=== PATIENT | male | born 1990 | race Two or more races ===

== ENCOUNTER 2016-05-26 14:57 | Emergency (ER) | payer OTHER ==
[~2016-05-26] VITALS: Ht 175.3 cm; Wt 81.6 kg
[2016-05-26 15:03] VITALS: BP 115/81
[2016-05-26] MEDS ORDERED: TDAP [DIPH/PERTUSSIS/TET] 0.5 ML VIAL IM STA (15:06)
[2016-05-26] MEDS ORDERED: TDAP [DIPH/PERTUSSIS/TET] 0.5 ML VIAL IM ONE (15:22)
--- NOTE | 2016-05-26 15:43 | NUR ---
wound care provided.
== END 2016-05-26 15:46 | disposition home or self-care (01) ==
LOC: ER 14:59
DX: S61.216A Laceration without foreign body of right little finger without damage to nail, initial encounter (principal); W45.8XXA Other foreign body or object entering through skin, initial encounter; Y93.89 Activity, other specified; Y92.89 Other specified places as the place of occurrence of the external cause; Y99.8 Other external cause status
CPT/HCPCS: 12001; 90471; 90715; 99283; A4606; A6402; Z7610

== ENCOUNTER 2017-01-29 01:35 | Emergency (ER) | payer SELFPAY ==
[~2017-01-29] VITALS: Ht 177.8 cm; Wt 95.3 kg
[2017-01-29 01:44] VITALS: BP 132/78
--- NOTE | 2017-01-29 01:50 | NUR ---
TO BED 8 A 26 YO MALE PATIENT BIBSELF C/O "SUDDEN NECK PAIN" SINCE YESTERDAY. DENIES TRAUMA. VSS. NAD NOTED. AMBULATORY. COMFORT MEASURES RENDERED. AWAITING FOR ER MD GARDNER.
== END 2017-01-29 02:23 | disposition home or self-care (01) ==
LOC: ER 01:39
DX: M62.830 Muscle spasm of back (principal); F41.9 Anxiety disorder, unspecified
CPT/HCPCS: 99282; A4606; Z7610

== ENCOUNTER 2017-03-06 11:24 | Emergency (ER) | payer SELFPAY ==
[~2017-03-06] VITALS: Ht 175.3 cm; Wt 104.3 kg
[2017-03-06 11:32] VITALS: BP 137/88
--- NOTE | 2017-03-06 11:41 | NUR ---
Pt c/o dizziness since waking up this AM, slight nausea. Had bad STAFFORD last 2-3 days. Strong and equal spinneret cleaner, dorsi & pedi flexion, symetrical face and smile, tongue midline, PERRLA. Pt denies CP, no other complaints, no distress noted.
[2017-03-06] MEDS ORDERED: MECLIZINE HCL 12.5 MG TABLET PO ONE (12:00)
[2017-03-06] MEDS ORDERED: MECLIZINE HCL 25 MG TABLET ONE ×2 (12:07→13:08)
[2017-03-06] MEDS ORDERED: ONDANSETRON 4 MG TAB.RAPDIS ONE ×2 (12:08→13:09)
[2017-03-06] MEDS: ONDANSETRON 4 MG TAB.RAPDIS SL ONE (12:10)
--- NOTE | 2017-03-06 13:43 | NUR ---
Gave pt RX and d/c instructions, verbalized understanding.
== END 2017-03-06 13:47 | disposition home or self-care (01) ==
LOC: ER 11:25
DX: R42 Dizziness and giddiness (principal); F41.9 Anxiety disorder, unspecified; F17.200 Nicotine dependence, unspecified, uncomplicated
CPT/HCPCS: 70450-TC; A4606; J8597; Q0162; Z7610

== ENCOUNTER 2018-04-06 02:37 | Emergency (ER) | payer SELFPAY ==
[~2018-04-06] VITALS: Ht 175.3 cm; Wt 104.3 kg
--- NOTE | 2018-04-06 02:50 | NUR ---
PT BIB SELF. COMP OF HAVING L L Q ABD PAIN. STARTED YESTERDAY. NO ISSUES WITH GI/ AT THIS MOMENT. AOX4. AMBULATORY W,STEADY GAIT. LABS COLLECTED AND SENT FOR ANALYSIS.
[2018-04-06] MEDS ORDERED: HYDROMORPHONE INJ 0.5 MG/0.5 ML SYRINGE ONE (02:57)
[2018-04-06] MEDS ORDERED: ONDANSETRON HCL/PF 4 MG/2 ML VIAL ONE (02:57)
[2018-04-06] MEDS ORDERED: ONDANSETRON HCL/PF 4 MG/2 ML VIAL IVP ONE (03:00)
[2018-04-06] MEDS ORDERED: HYDROMORPHONE INJ 2 MG/ML DISP.SYRIN IV ONE (03:00)
[2018-04-06 03:04] LABS: BASOPHILS # (AUTO) 0.1 /CMM (0.0-0.2); BASOPHILS % (AUTO) 0.8 % (0.0-2.0); EOSINOPHILS % (AUTO) 3.6 % (0.0-6.0); HEMATOCRIT 44 % (39-51); HEMOGLOBIN 14.9 g/dL (13.5-17.5); LYMPHOCYTES # (AUTO) 2.4 /CMM (0.8-4.8); LYMPHOCYTES % (AUTO) 25.4 % (20.0-44.0); MEAN CORPUSCULAR HGB CONC 34 g/dl (31.0-36.0); MEAN CORPUSCULAR VOLUME 83 fL (80-96); MONOCYTES # (AUTO) 0.3 /CMM (0.1-1.30); MONOCYTES % (AUTO) 3.4 % (2.0-12.0); NEUTROPHILS # (AUTO) 6.3 /CMM (1.8-8.9); NEUTROPHILS % (AUTO) 66.8 % (43.0-81.0); PLATELET COUNT (AUTO) 199 /CMM (150-450); RED BLOOD CELL COUNT(AUTO) 5.36 MIL/uL (4.5-6.0); WHITE BLOOD COUNT (AUTO) 9.5 K/uL (4.3-11.0)
[2018-04-06 03:07] LABS: CALCIUM, SERUM 8.9 mg/dL (8.5-10.1); CREATININE 0.8 mg/dL (0.6-1.3); POTASSIUM 3.6 mmol/L (3.5-5.1)
[2018-04-06 03:13] LABS: BILIRUBIN,DIRECT 0.1 mg/dL (0.0-0.2); BILIRUBIN,TOTAL 0.3 mg/dL (0.2-1.0); TOTAL PROTEIN, SERUM 7.9 g/dL (6.4-8.2)
[2018-04-06 03:17] LABS: APPEARANCE,URINE CLEAR (CLEAR); BILIRUBIN,URINE NEGATIVE (NEGATIVE); BLOOD, URINE NEGATIVE Ery/uL (NEGATIVE); COLOR,URINE YELLOW (YELLOW); KETONES,URINE NEGATIVE (NEGATIVE); LEUKOCYTE ESTERASE ,URINE NEGATIVE (NEGATIVE); NITRITE, URINE NEGATIVE (NEGATIVE); PH,URINE 6.5 (5.0-8.0); PROTEIN,URINE NEGATIVE (NEGATIVE); UGLUCOSE NEGATIVE (NEGATIVE); UROBILINOGEN,URINE 0.2 EU/dL (0.2)
[2018-04-06 04:07] VITALS: BP 138/81
== END 2018-04-06 04:08 | disposition home or self-care (01) ==
LOC: ER 02:37
DX: K52.9 Noninfective gastroenteritis and colitis, unspecified (principal); F41.9 Anxiety disorder, unspecified; F17.200 Nicotine dependence, unspecified, uncomplicated; Z76.0 Encounter for issue of repeat prescription
CPT/HCPCS: 36415; 80048-TC; 80076-TC; 81000-TC; 83690-TC; 85025-TC; J2405

== ENCOUNTER 2018-06-20 22:04 | Emergency (ER) | payer MEDICAID ==
[~2018-06-20] VITALS: Ht 175.3 cm; Wt 109.3 kg
[2018-06-20 22:17] VITALS: BP 136/78
[2018-06-20] MEDS ORDERED: ONDANSETRON HCL/PF 4 MG/2 ML VIAL ONE (22:48)
[2018-06-20] MEDS ORDERED: MECLIZINE HCL 25 MG TABLET ONE (22:49)
[2018-06-20 22:50] LABS: BASOPHILS # (AUTO) 0.1 /CMM (0.0-0.2); BASOPHILS % (AUTO) 0.6 % (0.0-2.0); EOSINOPHILS % (AUTO) 4.4 % (0.0-6.0); HEMATOCRIT 44 % (39-51); HEMOGLOBIN 15.1 g/dL (13.5-17.5); LYMPHOCYTES # (AUTO) 2.2 /CMM (0.8-4.8); LYMPHOCYTES % (AUTO) 24.4 % (20.0-44.0); MEAN CORPUSCULAR HGB CONC 34 g/dl (31.0-36.0); MEAN CORPUSCULAR VOLUME 83 fL (80-96); MONOCYTES # (AUTO) 0.4 /CMM (0.1-1.30); MONOCYTES % (AUTO) 4.3 % (2.0-12.0); NEUTROPHILS # (AUTO) 5.9 /CMM (1.8-8.9); NEUTROPHILS % (AUTO) 66.3 % (43.0-81.0); PLATELET COUNT (AUTO) 204 /CMM (150-450); RED BLOOD CELL COUNT(AUTO) 5.38 MIL/uL (4.5-6.0); WHITE BLOOD COUNT (AUTO) 8.8 K/uL (4.3-11.0)
[2018-06-20 22:58] LABS: CREATININE 0.7 mg/dL (0.6-1.3); POTASSIUM 4.1 mmol/L (3.5-5.1)
[2018-06-20] MEDS ORDERED: ONDANSETRON HCL/PF 4 MG/2 ML VIAL IVP ONE (23:00)
[2018-06-20] MEDS ORDERED: MECLIZINE HCL 12.5 MG TABLET PO ONE (23:00)
[2018-06-20] MEDS ORDERED: IV NS 0.9% 1,000 ML BAG IV ONE (23:00)
== END 2018-06-20 23:09 | disposition home or self-care (01) ==
LOC: ER 22:09
DX: R42 Dizziness and giddiness (principal); F41.9 Anxiety disorder, unspecified; F17.200 Nicotine dependence, unspecified, uncomplicated
CPT/HCPCS: 36415; 80048; 85025; 96360; 99283; J7030; J8597; J2405

== ENCOUNTER 2018-08-26 06:54 | Emergency (ER) | payer SELFPAY ==
[~2018-08-26] VITALS: Ht 175.3 cm; Wt 104.3 kg
--- NOTE | 2018-08-26 07:05 | NUR ---
PT BIBRA FROM HOME C/O DIZZINESS. -KO, -N/V/D, -HEADACHE. HX VERTIGO. 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 PT AOX4. NAD NOTED. NO RESP DISTRESS NOTED. PT ON MONITOR ON BED 10. WILL CONTINUE TO MONITOR.
--- NOTE | 2018-08-26 07:34 | NUR ---
REPORT GIVEN TO FRENCH SOLOMON FOR FORTINO
--- NOTE | 2018-08-26 07:35 | NUR ---
REPORT RECEIVED FROM IVÁN BRASWELL FOR FORTINO
--- NOTE | 2018-08-26 07:36 | NUR ---
TECH AT BEDSIDE FOR L EAR IRRIGATION
--- NOTE | 2018-08-26 08:49 | NUR ---
Patient discharged to home in stable condition. Written and verbal after care instructions given. Patient verbalizes understanding of instruction.
[2018-08-26 08:59] VITALS: BP 112/66
== END 2018-08-26 08:50 | disposition home or self-care (01) ==
LOC: ER 06:54
DX: R42 Dizziness and giddiness (principal); H61.22 Impacted cerumen, left ear; F41.9 Anxiety disorder, unspecified; F17.200 Nicotine dependence, unspecified, uncomplicated
CPT/HCPCS: 69209; 99283; A6402

== ENCOUNTER 2019-02-20 11:51 | Emergency (ER) | payer SELFPAY ==
[~2019-02-20] VITALS: Ht 175.3 cm; Wt 104.3 kg
--- NOTE | 2019-02-20 12:05 | NUR ---
came in for f/u diagnosed with leach's palsy 3 days ago, sob but 96% on RA. Patient a/ox4, breathing even and unlabored, no sob noted, needs attended.
--- NOTE | 2019-02-20 12:10 | NUR ---
mary pa at bedside
[2019-02-20 12:26] VITALS: BP 133/76
--- NOTE | 2019-02-20 12:26 | NUR ---
Patient discharged to home in stable condition. Written and verbal after care instructions given. Patient verbalizes understanding of instruction.
== END 2019-02-20 12:28 | disposition home or self-care (01) ==
LOC: ER 12:02
DX: G51.0 Bell's palsy (principal); F41.9 Anxiety disorder, unspecified; F17.200 Nicotine dependence, unspecified, uncomplicated